=== PATIENT | female | born 1995 | race Caucasian/White ===

== ENCOUNTER → 2021-04-27 10:28 | Outpatient (CLI) | payer OTHER, SELFPAY ==
[2021-04-27 10:53] LABS: COVID19 -Nasal RAPID Negative (Negative)
== END ==
PROVIDERS: Visit Provider Obstetrics & Gynecology
DX: Z01.812 Encounter for preprocedural laboratory examination (principal); Z20.822 Contact with and (suspected) exposure to COVID-19
CPT/HCPCS: 87635

== ENCOUNTER 2021-04-28 08:27 | Day surgery (SDC) | payer OTHER, SELFPAY ==
[2021-04-28] VITALS (8 sets, daily range): BP systolic 93–107; BP diastolic 54–66; PULSE 57–82; RESP 12–16; TEMP 36.3–36.8; O2SAT 98–100
--- NOTE | 2021-04-28 | PATH_ITS ---
[facility] Accession Number: [id number] . 01 Material submitted: . PART A: cervix - POSTERIOR LIP PART B: cervix - ANTERIOR LIP PART C: endocervix - ECC . 02 Diagnosis: A. Uterine Cervix, Posterior Lip, LEEP Excision: Transformation zone mucosa with focal mild atypia, consistent with low-grade squamous intraepithelial lesion (LEELA-1/HPV cytopathic effect/mild dysplasia), in a background of inflammation and reactive changes. No definite squamous dysplasia identified at cauterized/inked tissue edges. Negative for high-grade squamous intraepithelial lesion, glandular dysplasia, and malignancy. . B. Uterine Cervix, Anterior Lip, LEEP Excision: Transformation zone mucosa with focal mild atypia, consistent with low-grade squamous intraepithelial lesion (LEELA-1/HPV cytopathic effect/mild dysplasia). Focal changes consistent with HPV cytopathic effect appear to focally involve cauterized/inked endocervical tissue edge, but are free from the remaining inked/cauterized edges. Negative for high-grade squamous intraepithelial lesion, glandular dysplasia, and malignancy. . C. Endocervix, Curettage: A minute fragment of upper endocervical mucosa with squamous metaplasia. Negative for dysplasia and malignancy. [facility] 05/03/2021 2341 Local . 02 Electronically signed: . Olinda Whittington MD, Pathologist NPI- [id number] . 01 Gross description: . A. Received in formalin, labeled with the patient's name, and additionally labeled posterior lip is a portion of cervix measuring 1.4 x 0.8 cm excised to a depth of 0.3 cm. The specimen is received unoriented. The probable endocervical margin is inked orange, and the deep and endocervical margins blue. The ectocervical mucosa is zambrano, smooth and glistening. The specimen is sectioned and entirely submitted in cassette A1. B. Received in formalin, labeled with the patient's name, and additionally labeled anterior lip is an excision of cervix measuring 1.0 x 0.5 cm excised to a depth of 0.3 cm. The specimen is received unoriented. The possible endocervical margin is inked orange, and the remaining deep and ectocervical margin inked blue. The ectocervical mucosa is zambrano, smooth and glistening. Also present are two fragments of zambrano-brown cervical tissue measuring 0.7 x 0.6 x 0.2 cm. The main specimen is serially sectioned. The entire specimen is submitted with the main piece in cassette B1, and the additional fragments in cassette B2. C. Received in formalin, labeled with the patient's name, and additionally labeled ECC is a scant aggregate of zambrano tissue and mucinous debris measuring 1.0 x 0.1 by less than 0.1 cm. The specimen is wrapped and entirely submitted in cassette C1. ([id number]) /MRV 05/02/2021 1052 Local . 02 Pathologist provided ICD-10: N87.0 . 02 CPT . 445184, 728252, 644201 Specimen Comment: A courtesy copy of this report has been sent to [phone] Performed at: 01 [facility] [address] [id number] MD Pk Romeo MD Phone: [phone] Performed at: 02 [facility] [address] [place] [id number] MD Olya Posada MD Phone: [phone]
--- NOTE | 2021-04-28 09:21 | PM.PREOP ---
Pre-operative Note COVID-19 COVID-19 status: Negative Result date/Date tested (Pos, Neg/Pending): 04/28/21 Criteria for continued procedure: Non-surgical alternatives not available or appropriate per current SOC Interval Note History & Physical reviewed/Exam performed by Physician: Yes Changes to H&P: No
--- NOTE | 2021-04-28 09:33 | SUR.OPER ---
Lithotomy on padded OR bed, head on pillow, arms secured on padded arm boards at <90 degrees abduction. Legs secured in padded yellow fins stirrups.
[2021-04-28] MEDS: FERRIC SUBSULFATE 8 GM SOLUTION 8 ML TOP (10:00)
[2021-04-28] MEDS: POTASSIUM IODIDE/IODINE 473 ML SOLUTION TOP (10:00)
--- NOTE | 2021-04-28 10:11 | PM.OP.1 ---
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 Cervix noted to have poor Lugol's uptake in lesion at 12 o clock and 5 o clock, both encompassed by the LEEP sample. Specimen(s): other (Anterior lip of cervix, posterior lip of cervix, endocervical curettings. ) Estimated Blood Loss (mL): 5 Procedure in detail: After informed consent was obtained and a test was negative, the patient was taken to the operating room where IV sedation was obtained. The patient was prepped and draped in the normal sterile fashion, and the bladder emptied via straight cath. A coated speculum was placed in the vagina, and the cervix visualized and treated with Lugol's solution. The above findings were noted. A [id number] LEEP loop was used to remove portions of the anterior and posterior lips of the cervix, and an endocervical curetting was performed. Rollerball cautery was used to obtain hemostasis, and the site was coated in Monsels solution. The speculum was removed and the patient taken to PACU in stable condition. The patient tolerated the procedure well. Complications: none Post-operative Condition: stable Disposition: PACU Plan for aftercare: Home with routine precautions.
[2021-04-28] MEDS: hydrOXYzine pamoate 25 MG CAPSULE PO (10:26)
[2021-04-28] MEDS: OXYCODONE IR 5 MG TABLET PO (10:26)
[2021-04-28] MEDS: LIDOCAINE 1% 20 ML INJ (10:28)
[2021-04-28] MEDS: EPINEPHrine 1 MG/ML 0.15 MG INJ (10:28)
== END 2021-04-28 11:08 | disposition home or self-care (01) ==
PROVIDERS: Referring Provider Obstetrics & Gynecology; Visit Provider Obstetrics & Gynecology
PROC: 0UBC7ZZ Excision of Cervix, Via Natural or Artificial Opening (ICD-10-PCS; CPT 57522; principal; 2021-04-28 10:00)
DX: N87.0 Mild cervical dysplasia (principal); F17.210 Nicotine dependence, cigarettes, uncomplicated
CPT/HCPCS: 57522; 81025; A9270; J0171; J1100; J1885; J2250; J2405; J2704; J3010